=== PATIENT | female | born 1960 | race Caucasian/White ===

== ENCOUNTER 2018-03-22 09:57 | Emergency (ER) | payer BC ==
[~2018-03-22] VITALS: Ht 172.7 cm; Wt 106.7 kg
[2018-03-22 10:12] VITALS: BP 148/70; PULSE 77; RESP 16; TEMP 98.3; O2SAT 97
[2018-03-22] MEDS ORDERED: LEVO.05 PO (10:37)
[2018-03-22] MEDS ORDERED: PANT40TA3 PO (10:37)
[2018-03-22] MEDS ORDERED: ENAB15TA PO (10:37)
[2018-03-22] MEDS ORDERED: BYST2.5T2 PO (10:37)
--- NOTE | 2018-03-22 10:51 | PD ---
HPI Chief Complaint: Musculoskeletal Complaint Time Seen by Provider: 10:43 Travel History International Travel<30 days: No Contact w/Intl Traveler<30days: [place] Country Traveled to: [place] Traveled to known affect area: No History of Present Illness HPI 57-year-old female presents to the emergency department for evaluation of left arm injury that occurred yesterday. She states she was pushing something heavy and felt a pop in her forearm. She reports associated pain in the left distal forearm that radiates up the left arm. Current pain is 6/10, aching, sharp. Exacerbating factor is movement. Alleviating factor is keeping the arm still. She has not taken anything for pain today. No obvious deformity. Mild severity. PFSH Past Medical History Hx Anticoagulant Therapy: Yes (ASA) Blood Disorders: No Cancer: No Cardiovascular Problems: No Endocrine: No Gastrointestinal Disorders: Yes Immune Disorder: No Musculoskeletal: No Neurologic: No Respiratory: No Thyroid Disease: Yes Influenza Vaccination: Yes ?: Not Past Surgical History Hysterectomy: Yes Social History Alcohol Use: Yes Tobacco Use: No Substance Use: No Allergies-Medications (Allergen,Severity, Reaction): Coded Allergies: coconut (Verified Allergy, Severe, throat swelling, 03/22/18) pineapple (Verified Allergy, Severe, throat swelling, 03/22/18) Reported Meds & Prescriptions Reported Meds & Active Scripts Active Reported Synthroid (Levothyroxine Sodium) 50 Mcg Tab 50 Mcg PO DAILY Pantoprazole (Pantoprazole Sodium) 40 Mg Tab 40 Mg PO DAILY Bystolic (Nebivolol) 2.5 Mg Tab 2.5 Mg PO DAILY Enablex 24 HR (Darifenacin ER 24 HR) 15 Mg Tab 15 Mg PO DAILY Review of Systems Except as stated in HPI: all other systems reviewed are Neg Physical Exam Narrative GENERAL: Well-nourished, well-developed female patient, afebrile SKIN: Focused skin assessment warm/dry. No lacerations or abrasions HEAD: Normocephalic. Atraumatic EYES: No scleral icterus. No injection or drainage. NECK: Supple, trachea midline. No JVD or lymphadenopathy. CARDIOVASCULAR: Regular rate and rhythm without murmurs, gallops, or rubs. Left radial pulse 2+ RESPIRATORY: Breath sounds equal bilaterally. No accessory muscle use. Lung sounds clear to auscultation peer GASTROINTESTINAL: Abdomen soft, non-tender, nondistended. MUSCULOSKELETAL: No cyanosis, or edema. Patient has tenderness over left distal forearm, left wrist. She can move all digits of the left hand as well as the left wrist. No obvious deformity. BACK: Nontender without obvious deformity. No CVA tenderness. Data Data Last Documented VS Vital Signs Date Time Temp Pulse Resp B/P (MAP) Pulse Ox O2 Delivery O2 Flow Rate FiO2 03/22/18 10:12 98.3 77 16 148/70 (96) 97 Orders Orders Forearm (2vws) (03/22/18 ) Splint Or Brace Apply/Monitor (03/22/18 11:28) [facility] Medical Decision Making Medical Screen Exam Complete: Yes Emergency Medical Condition: Yes Medical Record Reviewed: Yes Interpretation(s) Last Impressions Radius/Ulna X-Ray 03/22/18 0000 Signed Impressions: Service Date/Time: Thursday, March 22, 2018 10:58 - CONCLUSION: Unremarkable examination of the left forearm. Bon Godwin MD Differential Diagnosis Sprain versus fracture versus dislocation versus contusion Narrative Course 57-year-old female presents to the emergency department for evaluation of left forearm injury. Patient declines pain medication at this time. X-ray of the left forearm is ordered and pending. X-ray of the left forearm is unremarkable. Patient is provided a Velcro wrist splint for support. She is starting Tylenol/ Motrin [id number] as needed and ice. She is to follow with orthopedist if pain continues or worsens. The patient was discharged in stable condition with instructions, including return instructions and follow up instructions. Diagnosis Primary Impression: Left wrist sprain Qualified Codes: S63.502A - Unspecified sprain of left wrist, initial encounter Referrals: Orthopedist as needed Patient Instructions: General Instructions, Wrist Sprain (ED) Additional Instructions: [id number] Tylenol or ibuprofen as needed for pain. Ice for 20 minutes 4-5 times daily. Wear Velcro wrist splint as needed for support. Follow-up with an orthopedist if pain continues or worsens. Return to the emergency department for any acute worsening of symptoms Disposition: 01 DISCHARGE HOME Condition: Stable Fer,Mattie JORGENSEN Mar 22, 2018 10:51
--- NOTE | 2018-03-22 11:13 | RADRPT ---
EXAM DATE/TIME: 03/22/2018 10:58 [facility] COMPARISON: No previous studies available for comparison. INDICATIONS : Left distal forearm pain after hearing a pop while pushing a heavy object yesterday. MEDICAL HISTORY : Thyroid disease. SURGICAL HISTORY : Hysterectomy. ENCOUNTER: Initial ACUITY: 2 days PAIN SCORE: 7/10 LOCATION: Left distal forearm FINDINGS: Two view examination of the left forearm demonstrates no evidence of fracture or dislocation. Bony m ineralization is normal. The soft tissue structures are intact. CONCLUSION: Unremarkable examination of the left forearm. Bon Godwin MD on March 22, 2018 at 11:11 Board Certified Radiologist. This report was verified electronically.
== END 2018-03-22 11:41 | disposition home or self-care (01) ==
LOC: PHEFT 09:57
DX: S63.502A Unspecified sprain of left wrist, initial encounter (principal); X50.9XXA Other and unspecified overexertion or strenuous movements or postures, initial encounter; E07.9 Disorder of thyroid, unspecified
CPT/HCPCS: 73090; 99283; L3908